=== PATIENT | female | born 1980 | race Caucasian/White ===

== ENCOUNTER 2023-03-03 10:01 | Emergency (ER) | payer MEDICAID ==
[~2023-03-03] VITALS: Ht 162.6 cm; Wt 63.5 kg
[2023-03-03 10:16] VITALS: BP 138/93; PULSE 79; RESP 18; TEMP 97; O2SAT 98
[2023-03-03] MEDS ORDERED: LIDOCAINE MPF 1% 10 MG/ML VIAL INJ ONE (11:10)
[2023-03-03] MEDS ORDERED: BACITRACIN OINT 500 UNITS/GM PKT TP ONE (12:25)
== END 2023-03-03 13:00 | disposition home or self-care (01) ==
LOC: MED 10:01
DX: S71.112A Laceration without foreign body, left thigh, initial encounter (principal); W26.8XXA Contact with other sharp object(s), not elsewhere classified, initial encounter; Y93.89 Activity, other specified; Y92.89 Other specified places as the place of occurrence of the external cause; Y99.8 Other external cause status
CPT/HCPCS: 12002; 90471; 90715; 99283; J2001

== ENCOUNTER 2023-03-12 12:28 | Emergency (ER) | payer MEDICAID ==
[~2023-03-12] VITALS: Ht 157.5 cm; Wt 64.9 kg
[2023-03-12 12:40] VITALS: BP 118/72; PULSE 64; RESP 18; TEMP 98.3; O2SAT 98
[2023-03-12] MEDS ORDERED: BACITRACIN OINT 500 UNITS/GM PKT TP ONE (13:00)
[2023-03-12 13:37] VITALS: BP 118/72; PULSE 64; RESP 18; TEMP 98.3; O2SAT 98
== END 2023-03-12 13:38 | disposition home or self-care (01) ==
LOC: MED 12:28
DX: S71.112D Laceration without foreign body, left thigh, subsequent encounter (principal); Z48.02 Encounter for removal of sutures; Z86.39 Personal history of other endocrine, nutritional and metabolic disease; W25.XXXD Contact with sharp glass, subsequent encounter
CPT/HCPCS: 99282